=== PATIENT | female | born 1975 | race Caucasian/White ===

== ENCOUNTER 2017-07-08 09:35 | Inpatient (IN) | payer BC ==
[2017-07-08] MEDS ORDERED: LORAZEPAM 2 MG/ML VIAL IV ONE ×4 (10:01→21:17)
--- NOTE | 2017-07-08 10:01 | Emergency Department Record ---
History of Present Illness - General Chief Complaint: Detox Evaluation Stated Complaint: ALCOHOL WITHDRAWAL Time Seen by Provider: 07/08/17 09:54 Source: Patient, RN notes reviewed Mode of Arrival: Ambulatory - History of Present Illness Initial Comments: patient drinking vodka one half pint per day for 2 years and last drink 48 hours ago. patient never went through detox before and she denies suicide or depression and some stress in her life and never had a seizure and no PMH. Currently she is hearing and seeing thing for the last 24 hours. No vomiting , no abdominal pain, no diarrhea or bloody stools. Onset/Timin -: Days(s) Associated Psychiatric Symptoms: Auditory hallucinations, Visual hallucinations History of same: No Quality: Intermittent, Getting worse Improves With: None Worsens With: None Context: Recent alcohol abuse Associated Symptoms: Denies other symptoms Treatments Prior to Arrival: None - Related Data Allergies Allergy/AdvReac Type Severity Reaction Status Date / Time nitrofurantoin Allergy HIVES Verified 07/08/17 09:46 [From Macrodantin] sulfamethoxazole Allergy HIVES Verified 07/08/17 09:46 [From Bactrim] trimethoprim [From Bactrim] Allergy HIVES Verified 07/08/17 09:46 Review of Systems Reviewed: No additional complaints except as noted below Constitutional: Reports: As per HPI. Denies: Chills, Fever, Malaise, Night sweats, Weakness, Weight change Eyes: Reports: As per HPI. Denies: Eye discharge, Eye pain, Photophobia, Vision change ENT: Reports: As per HPI. Denies: Congestion, Dental pain, Ear pain, Epistaxis , Hearing loss, Throat pain Respiratory: Reports: As per HPI. Denies: Cough, Dyspnea, Hemoptysis, Stridor, Wheezes Cardiovascular: Reports: As per HPI. Denies: Arrhythmia, Chest pain, Dyspnea on exertion, Edema, Murmurs, Orthopnea, Palpitations, Paroxysmal nocturnal dyspnea, Rheumatic Fever, Syncope Endocrine: Reports: As per HPI. Denies: Fatigue, Heat or cold intolerance, Polydipsia, Polyuria Gastrointestinal: Reports: As per HPI. Denies: Abdominal pain, Constipation, Diarrhea, Hematemesis, Hematochezia, Melena, Nausea, Vomiting Genitourinary: Reports: As per HPI. Denies: Abnormal menses, Discharge, Dyspareunia, Dysuria, Frequency, Hematuria, Incontinence, Retention, Urgency Musculoskeletal: Reports: As per HPI. Denies: Arthralgia, Back pain, Gout, Joint swelling, Myalgia, Neck pain Skin: Reports: As per HPI. Denies: Bruising, Change in color, Change in hair/ nails, Lesions, Pruritus, Rash Neurological: Reports: As per HPI, Tremors. Denies: Abnormal gait, Confusion, Headache, Numbness, Paresthesias, Seizure, Tingling, Vertigo, Weakness Psychiatric: Reports: As per HPI, Auditory hallucinations, Visual hallucinations. Denies: Anxiety, Depression, Homicidal thoughts, Suicidal thoughts Hematological/Lymphatic: Reports: As per HPI. Denies: Anemia, Blood Clots, Easy bleeding, Easy bruising, Swollen glands Past Medical History - SOCIAL HISTORY Smoking Status: Never smoker Alcohol Use Comment: quit 2 days ago Drug Use: None - RESPIRATORY Hx Respiratory Disorders: No - CARDIOVASCULAR Hx Cardio Disorders: No - NEURO Hx Neuro Disorders: No - GI Hx GI Disorders: No - Hx Genitourinary Disorders: No - ENDOCRINE Hx Endocrine Disorders: No - MUSCULOSKELETAL Hx Musculoskeletal Disorders: No - PSYCH Hx Psych Problems: No - HEMATOLOGY/ONCOLOGY Hx Hematology/Oncology Disorders: No Family Medical History Any Significant Family History?: No Physical Exam - General General Appearance: Alert, Oriented x3, Cooperative, Mild distress - Head Head exam: Normal inspection - Eye Eye exam: Normal appearance, PERRL Pupils: Normal accommodation - ENT ENT exam: Normal exam, Mucous membranes moist, Normal external ear exam, Normal orophraynx, TM's normal bilaterally Ear exam: Normal external inspection. negative: External canal tenderness Nasal Exam: Normal inspection. negative: Discharge, Sinus tenderness Mouth exam: Normal external inspection, Tongue normal Teeth exam: Normal inspection. negative: Dental caries Throat exam: Normal inspection. negative: Tonsillar erythema, Tonsillar exudate - Neck Neck exam: Normal inspection, Full ROM. negative: Tenderness - Respiratory Respiratory exam: Normal lung sounds bilaterally. negative: Respiratory distress - Cardiovascular Cardiovascular Exam: Regular rate, Normal rhythm, Normal heart sounds - GI/Abdominal GI/Abdominal exam: Soft, Normal bowel sounds. negative: Tenderness - Rectal Rectal exam: Deferred - exam: Deferred - Extremities Extremities exam: Normal inspection, Full ROM, Normal capillary refill. negative: Tenderness - Back Back exam: Reports: Normal inspection, Full ROM. 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 Morse and will admit. 07/08/17 11:30 Medical Decision Making - Lab Data Result diagrams: 07/08/17 09:50 07/08/17 09:50 Disposition Clinical Impression: Delirium, withdrawal, alcoholic, Hallucination, Hypokalemia Decision to Admit: Admit from ER Condition: (2) Stable Forms: Patient Portal Access Time of Disposition: 11:32 Quality - Quality Measures Quality Measures: N/A - Blood Pressure Screening Does Patient Have Any of the Following: No Blood Pressure Classification: Hypertensive Reading Systolic Measurement: 150 Diastolic Measurement: 124 Screening for High Blood Pressure: < First Hypertensive BP, F/U Documented > [ [id number]] Pre-Hypertensive Follow-up Interventions: Referral to alternative/primary care provider. First Hypertensive Follow-up Interventions: Referral to alternative/primary care provider.
[2017-07-08] MEDS ORDERED: THIAMINE 100 MG/ML VIAL IM ONE (10:02)
[2017-07-08] MEDS ORDERED: MVI, ADULT NO.4 WITH VIT K 10 ML, THIAMINE HCL IV 100 MG in 0.9 % SODIUM CHLORIDE 1000M... IV SCH ×6 (10:15)
[2017-07-08 10:16] LABS: BASO % 0.4 % (0-6); EOS % 0.8 % (0-6); GRAN % 79.8 % (47-80); HEMATOCRIT 41.2 % (35.0-47.0); HEMOGLOBIN 14.6 gm/dl (11.6-16.0); LYMPH % 11.1 % (16-45); MEAN CORPUSCULAR HEMOGLOBIN 35.8 pg (27-33); MEAN CORPUSCULAR HGB CONC 35.4 g/dl (32-36); MEAN PLATELET VOLUME 9.8 fl (7.4-10.4); MONO % 7.9 % (0-9); PLATELET COUNT 140 K/uL (130-400); RED BLOOD COUNT 4.08 M/uL (3.80-5.40); WHITE BLOOD COUNT W/O DIFF 5.3 K/uL (4.2-12.2)
[2017-07-08] MEDS ORDERED: MVI, ADULT NO.4 WITH VIT K 10 ML, THIAMINE HCL IV 100 MG in 0.9 % SODIUM CHLORIDE 1000M... IV ONE ×3 (10:26)
[2017-07-08 10:29] LABS: INR 1.05; PARTIAL THROMBOPLASTIN TIME 27.2 SECONDS (24.5-39.1); PROTHROMBIN TIME (PATIENT) 11.3 SECONDS (9.5-12.1)
[2017-07-08 10:32] LABS: ALBUMIN 4.2 g/dL (4.0-5.0); ALKALINE PHOSPHATASE 116 U/L (35-104); ALT/SGPT 38 U/L (<33); AST/SGOT 85 U/L (10.0-35.0); BILIRUBIN,DIRECT 0.2 mg/dL (0-0.3); BLOOD UREA NITROGEN 8 mg/dL (6-20); CREATININE 0.4 mg/dL (0.5-0.9); EST GLOMERULAR FILTRATION RATE > 60 mL/min; GLUCOSE,RANDOM 120 mg/dL (74-109); TOTAL PROTEIN 7.5 g/dL (6.6-8.7)
[2017-07-08 10:36] LABS: ACETAMINOPHEN < 5.0 ug/mL (10.0-30.0)
[2017-07-08] MEDS ORDERED: POTASSIUM CHLORIDE 20 MEQ/15ML CUP PO ONE ×2 (10:39→11:24)
[2017-07-08] MEDS ORDERED: CLONIDINE HCL 0.1 MG TABLET PO ONE (11:37)
[2017-07-08 12:41] LABS: URINE APPEARANCE CLEAR; URINE BILIRUBIN MODERATE (NEGATIVE); URINE BLOOD LARGE (NEGATIVE); URINE COLOR YELLOW; URINE GLUCOSE (UA) NEGATIVE (NEGATIVE); URINE LEUKOCYTE ESTERASE NEGATIVE (NEGATIVE); URINE NITRITE NEGATIVE (NEGATIVE); URINE UROBILINOGEN >=8.0 E.U./dL (0.20 - 1.00)
[2017-07-08 12:43] LABS: URINE KETONE 80 mg/dL (NEGATIVE)
[2017-07-08 12:44] LABS: SALICYLATE < 0.3 mg/dL (2.8-20)
[2017-07-08 12:48] LABS: HCG,QUALITATIVE URINE NEGATIVE (NEGATIVE); URINE RBC 16 - 25 (NONE SEEN); URINE WBC NONE SEEN (0-2/hpf)
[2017-07-08 12:53] LABS: AMPHETAMINE SCREEN URINE NOT DETECTED; BARBITURATE SCREEN URINE NOT DETECTED; BENZODIAZEPINE SCREEN URINE DETECTED; COCAINE SCREEN URINE NOT DETECTED; METHADONE SCREEN URINE NOT DETECTED; METHAMPHETAMINE SCREEN NOT DETECTED; OPIATE SCREEN URINE NOT DETECTED; OXYCODONE SCREEN URINE NOT DETECTED; PHENCYCLIDINE SCREEN URINE NOT DETECTED; PROPOXYPHENE SCREEN URINE NOT DETECTED; THC SCREEN URINE NOT DETECTED; TRICYCLIC ANTIDEPRESSANT SCRN NOT DETECTED
[2017-07-08] MEDS ORDERED: LORAZEPAM 2 MG/ML VIAL IV PRN (13:34)
[2017-07-08] MEDS ORDERED: 0.9 % SODIUM CHLORIDE 1000ML 1,000 ML IV SCH (15:00)
[2017-07-08] MEDS ORDERED: THIAMINE HCL IV 100 MG, MVI, ADULT NO.4 WITH VIT K 10 ML in POTASSIUM CHL 20MEQ IN 1L N... IV ONE ×3 (15:00)
[2017-07-08] MEDS ORDERED: CHLORDIAZEPOXIDE 25 MG CAPSULE PO SCH (16:00)
--- NOTE | 2017-07-08 17:05 | History & Physical ---
History of Present Illness - Date of Service Date of Service for History & Physical: 07/08/17 - History of Present Illness Admitting Diagnosis: alcohol withdrawal History of Present Illness: Mrs Donald is a 41 y/o female who presents with an ongoing history of excessive Etoh intake. Over the past 2 years she has been drinking two pint s of vodka daily and quit about 2 days ago after losing her job. As per her she had an incident at work which prompted her employer to notify him. He decided to bring the patient to the hospital as she became increasingly agitated and began having hallucinations. The patient has not had previous episodes of withdrawal or DTs and denies other illicit drugs use. Travel Screening - Travel/Exposure Within Last 30 Days Have you traveled within the last 30 days?: No - Travel/Exposure Within Last Year Have you traveled outside the [place] in the last year?: No - Additonal Travel Details Have you been exposed to anyone with a communicable illness?: No - Travel Symptoms Symptom Screening: None Review of Systems Constitutional: Reports: As per HPI. Denies: Chills, Fever, Malaise, Night sweats, Weakness, Weight change Eyes: Reports: As per HPI. Denies: Eye discharge, Eye pain, Photophobia, Vision change ENT: Reports: As per HPI. Denies: Congestion, Dental pain, Ear pain, Epistaxis , Hearing loss, Throat pain Respiratory: Reports: As per HPI. Denies: Cough, Dyspnea, Hemoptysis, Stridor, Wheezes Cardiovascular: Reports: As per HPI. Denies: Arrhythmia, Chest pain, Dyspnea on exertion, Edema, Murmurs, Orthopnea, Palpitations, Paroxysmal nocturnal dyspnea, Rheumatic Fever, Syncope Endocrine: Reports: As per HPI. Denies: Fatigue, Heat or cold intolerance, Polydipsia, Polyuria Gastrointestinal: Reports: As per HPI. Denies: Abdominal pain, Constipation, Diarrhea, Hematemesis, Hematochezia, Melena, Nausea, Vomiting Genitourinary: Reports: As per HPI. Denies: Abnormal menses, Discharge, Dyspareunia, Dysuria, Frequency, Hematuria, Incontinence, Retention, Urgency Musculoskeletal: Reports: As per HPI. Denies: Arthralgia, Back pain, Gout, Joint swelling, Myalgia, Neck pain Skin: Reports: As per HPI. Denies: Bruising, Change in color, Change in hair/ nails, Lesions, Pruritus, Rash Neurological: Reports: As per HPI, Confusion, Tremors, Weakness. Denies: Abnormal gait, Headache, Numbness, Paresthesias, Seizure, Tingling, Vertigo Psychiatric: Reports: As per HPI, Auditory hallucinations, Visual hallucinations. Denies: Anxiety, Depression, Homicidal thoughts, Suicidal thoughts Hematological/Lymphatic: Reports: As per HPI. Denies: Anemia, Blood Clots, Easy bleeding, Easy bruising, Swollen glands Past Medical History - SOCIAL HISTORY Smoking Status: Never smoker Alcohol Use Comment: quit 2 days ago Drug Use: None - RESPIRATORY Hx Respiratory Disorders: No - CARDIOVASCULAR Hx Cardio Disorders: No - NEURO Hx Neuro Disorders: No - GI Hx GI Disorders: No - Hx Genitourinary Disorders: No - ENDOCRINE Hx Endocrine Disorders: No - MUSCULOSKELETAL Hx Musculoskeletal Disorders: No - PSYCH Hx Psych Problems: No - HEMATOLOGY/ONCOLOGY Hx Hematology/Oncology Disorders: No Family Medical History Any Significant Family History?: No H&P Meds/Allergies - Allergies Allergies: Allergies Allergy/AdvReac Type Severity Reaction Status Date / Time nitrofurantoin Allergy HIVES Verified 07/08/17 09:46 [From Macrodantin] sulfamethoxazole Allergy HIVES Verified 07/08/17 09:46 [From Bactrim] trimethoprim [From Bactrim] Allergy HIVES Verified 07/08/17 09:46 - Home Medications Home Medications Medication Instructions Recorded Confirmed Last Taken No Home Med [NO HOME MEDS] 07/08/17 07/08/17 Unknown - Active Medications Active Medications: Current Medications Chlordiazepoxide HCl (Librium) 25 mg PO TID COUNTS INCLUDE 234 BEDS AT THE [facility] Last Admin: 07/08/17 15:54 Dose: 25 mg Cyanocobalamin (Vitamin B-12) 100 mcg PO DAILY COUNTS INCLUDE 234 BEDS AT THE [facility] Folic Acid () 1 mg PO DAILY COUNTS INCLUDE 234 BEDS AT THE [facility] Multivitamins/Minerals 10 ml/Thiamine HCl 100 mg/ Sodium Chloride 1,011 mls @ 100 mls/hr IV .[id number] ONE Stop: 07/08/17 20:32 Last Admin: 07/08/17 10:34 Dose: 100 mls/hr Sodium Chloride () 1,000 mls @ 75 mls/hr IV .[id number] COUNTS INCLUDE 234 BEDS AT THE [facility] Last Admin: 07/08/17 15:56 Dose: 75 mls/hr Lorazepam (Ativan) 1 mg IV Q4HR PRN PRN Reason: Alcohol Withdrawal Multivitamins/Minerals (Centrum) 1 tab PO DAILY SP Physical Exam - Vital Signs Vital Signs: Vital Signs - Last 24 Hrs Temp Pulse Resp BP BP Pulse Ox 07/08/17 14:34 99.4 F 73 18 120/89 98 07/08/17 13:34 97.7 F 93 H 18 123/92 96 07/08/17 13:18 20 136/109 98 - General General Appearance: Alert, Oriented x3, Cooperative, Mild distress (pt appears agitated and restless) - Head Head exam: Normal inspection - Eye Eye exam: Normal appearance, PERRL Pupils: Normal accommodation - ENT ENT exam: Normal exam, Mucous membranes moist, Normal external ear exam, Normal orophraynx, TM's normal bilaterally Ear exam: Normal external inspection. negative: External canal tenderness Nasal Exam: Normal inspection. negative: Discharge, Sinus tenderness Mouth exam: Normal external inspection, Tongue normal Teeth exam: Normal inspection. negative: Dental caries Throat exam: Normal inspection. negative: Tonsillar erythema, Tonsillar exudate - Neck Neck exam: Normal inspection, Full ROM. negative: Tenderness - Respiratory Respiratory exam: Normal lung sounds bilaterally. negative: Respiratory distress - Cardiovascular Cardiovascular Exam: Regular rate, Normal rhythm, Normal heart sounds - GI/Abdominal GI/Abdominal exam: Soft, Normal bowel sounds. negative: Tenderness - Rectal Rectal exam: Deferred - exam: Deferred - Extremities Extremities exam: Normal inspection, Full ROM, Normal capillary refill. negative: Tenderness - Back Back exam: Reports: Normal inspection, Full ROM. Denies: Muscle spasm, Rash noted, Tenderness - Neurological Neurological exam: Alert, Normal gait, Oriented X3, Reflexes normal, Other ( tremor and both visual and auditory hallucinations) - Psychiatric Psychiatric exam: Agitated - Skin Skin exam: Dry, Intact, Normal color, Warm Results - Labs Result Diagrams: 07/08/17 09:50 07/08/17 16:20 Labs Last 24 Hours: Laboratory Results - last 24 hr 07/08/17 07/08/17 07/08/17 12:30 12:30 16:20 Potassium 3.4 Urine Color Yellow Urine Appearance Clear Urine pH >=9.0 Ur Specific [place] 1.010 Urine Protein 30 mg/dl H Urine Glucose (UA) Negative Urine Ketones 80 mg/dl H Urine Blood Large H Urine Nitrite Negative Urine Bilirubin Moderate H Urine Urobilinogen >=8.0 Ur Leukocyte Esterase Negative Urine RBC 16 - 25 Urine WBC None seen Ur Epithelial Cells 3 - 6 Urine HCG, Qual Negative Urine Opiates Screen Not detected Ur Oxycodone Screen Not detected Urine Methadone Screen Not detected Ur Propoxyphene Screen Not detected Ur Barbituates Screen Not detected Ur Tricyclics Screen Not detected Ur Phencyclidine Scrn Not detected Ur Amphetamine Screen Not detected U Methamphetamines Scrn Not detected U Benzodiazepines Scrn Detected Urine Cocaine Screen Not detected Urine Cannabis Screen Not detected VTE H&P Assessment - Risk for VTE Risk for VTE: Yes Risk Level: Low Risk Assessment Date: 07/08/17 Risk Assessment Time: 15:00 VTE Orders Placed or Will Be Placed: Yes Plan - Inpatient Certification Inpatient Certification: Admit to inpatient care: Based on my medical assessment, after consideration of patient's risk factors (age, co-morbidities and patient presenting symptoms and acuity), I expect that this patient will remain in the hospital greater than or equal to two midnights and that the services needed warrant inpatient care because: Patient Risk Factors: [] Estimated length of stay: [] The patient may reasonably be expected to be discharged or transferred to a hospital within 96 hours after admission to [facility]. Services needed: [] Post hospital care (if known): [] I certify that my determination is in accordance with my understanding of Medicare requirements for reasonable and necessary inpatient services. - Detailed Diagnosis and Plan (1) Delirium, withdrawal, alcoholic Plan: - pt with CIWA of approx 26 on initial examination - started on Nacl 0.9% w/ thiamine, folate, mulitvitamin - on Librium 25 mg TID and received Ativan 1mg x 2 thus far. To be given Q15 mins if symptoms persist. - (addendum: an additional 5 mg given this evening without effect.) Current Visit: Yes Status: Acute Base Code: F10.231 - ALCOHOL DEPENDENCE WITH WITHDRAWAL DELIRIUM (2) Hallucination Plan: - pt experiencing, visual, tactile and auditory hallucinations - UDS negative Current Visit: Yes Status: Acute Base Code: R44.3 - HALLUCINATIONS, UNSPECIFIED (3) ETOH abuse Plan: - pt has a history of acute Etoh abuse for many years. - will require extensive therapy post d/c Current Visit: Yes Status: Acute Base Code: F10.10 - ALCOHOL ABUSE, UNCOMPLICATED (4) Hypokalemia Plan: - K+ 2.7 - repleted with 40 meq PO, 40 meq IV - repeat K+ after repletion Current Visit: Yes Status: Acute Base Code: E87.6 - HYPOKALEMIA - Disposition The patient is vitally stable at this time. However she is increasingly agitated and hallucinating. If the patient's symptoms progress we will have to consider transfer to [facility] or [facility] for possible ICU monitoring.
[2017-07-09] MEDS ORDERED: CYANOCOBALAMIN (VITAMIN B-12) 100 MCG TABLET PO SCH (10:00)
[2017-07-09] MEDS ORDERED: THIAMINE MONONITRATE 100 MG TABLET PO SCH (10:00)
[2017-07-09] MEDS ORDERED: FOLIC ACID 1 MG TABLET PO SCH (10:00)
[2017-07-09] MEDS ORDERED: MULTIVITAMINS/MINERALS TABLET PO SCH (10:00)
== END 2017-07-08 22:10 | disposition short-term general hospital (02) | DRG 897 ==
LOC: ER 09:35 → MEDSURG 12:23
PROVIDERS: ADMIT Internal Medicine; ATTEND Internal Medicine
DX: F10.231 Alcohol dependence with withdrawal delirium (principal); F10.10 Alcohol abuse, uncomplicated; E87.6 Hypokalemia
CPT/HCPCS: 80048; 80076; 80305; 80320; 80329; 81001; 81025; 84132; 85025; 85610; 85730; 96365; 96366; 96372; 96375; 99236; 99285; J3411; J7030